=== PATIENT | male | born 1990 | race African-American/Black ===

== ENCOUNTER 2016-08-31 16:40 | Emergency (ER) | payer BC ==
--- NOTE | ~2016-08-31 | US115 ---
[facility] A Service of [facility] & [facility] RADIOLOGY TEXT RESULTS PATIENT: JOHANNA MADDOX LOCATION: CFT[facility] : 88 UNIT #: [id number] AGE: [address]: PRADEEP KWOK APRN SEX: M ORDER DR: [id number] [facility] [address] [place], [place] [address] [id number] E MR#: [id number] Acc #: [id number] NAME: JOHANNA MADDOX : 1990 SEX: M STUDY DATE/TIME: 08/31/2016 20:17 UNIT: CFTX ROOM: STUDY DESCRIPTION: US Scrotum and Contents Attending Physician: Pradeep Kwok Aprn Ordering Physician: Almas Carl A.P.R.N. Primary Care Physician: Davon Dhillon M.D. MEDICAL IMAGING REPORT This report is preliminary unless electronic signature is present EXAM Ultrasound scrotum and contents HISTORY Pain left testis, swollen, pain x1 week. Denies any trauma. No surgery history. No history of hernia or cancer. FINDINGS Real-time ultrasonography of the scrotal contents performed. Quigley-scale, color Doppler, Doppler pulse-wave interrogation utilized. The right testis measures approximately 3.55 cm x 2.57 cm x 2.62 cm. Arterial and venous flow present. Small right hydrocele. Testis normal in contour and echotexture. No testicular mass lesion. The right epididymis is unremarkable. The left testis measures 2.74 cm x 4.21 cm x 2.98 cm. Normal in contour and echotexture. Arterial and venous flow present in the left testis. Small left hydrocele greater than on right. The bilateral epididymides appear mildly prominent but there is no epididymal hypervascularity. Appearance is relatively symmetric and I favor it is the normal appearance for this patient. IMPRESSION 1. The testes appear normal in size, contour and echotexture. No testicular mass lesion. 2. Small bilateral hydroceles left greater than right. 3. The bilateral epididymides appear mildly prominent but there is no focal abnormality. There is no hypervascularity to raise suspicion for epididymitis. I favor that the appearance is the normal state for this patient. [facility]. [facility] A Service of [facility] & [facility] RADIOLOGY TEXT RESULTS PATIENT: JOHANNA MADDOX LOCATION: [facility] : [birth year] UNIT #: [id number] AGE: [address]: PRADEEP KWOK APRN SEX: M ORDER DR: Dictated by... Sachin Cota M.D. THIS IS AN ELECTRONICALLY VERIFIED REPORT Sachin Cota M.D. at 09/01/2016 10:48 PM STEFANIA/drew TD: 09/01/2016 13:21 JOB #: [id number] MEDICAL IMAGING REPORT Page 1 of 1 COPY
--- NOTE | ~2016-08-31 | CT105 ---
[facility] A Service of [facility] RADIOLOGY TEXT RESULTS PATIENT: JOHANNA MADDOX LOCATION: [place] : [birth year] UNIT #: [id number] AGE: [address]: PRADEEP KWOK APRN SEX: M ORDER DR: [id number] [facility] [address] [place] [address] [place], [place] [address] [id number] E MR#: [id number] Acc #: [id number] NAME: JOHANNA MADDOX : 1990 SEX: M STUDY DATE/TIME: 08/31/2016 21:59 UNIT: CFTX ROOM: STUDY DESCRIPTION: CT Pelvis W Cont Attending Physician: Pradeep Kwok Aprn Ordering Physician: Pradeep Kwok Aprn Primary Care Physician: Davon Dhillon M.D. MEDICAL IMAGING REPORT This report is preliminary unless electronic signature is present EXAM CT pelvis with contrast INDICATIONS Left testicle swelling and pain for a week. Scrotal ultrasound was done earlier and was negative. TECHNIQUE Axial 5 mm images were obtained through the pelvis with IV contrast. This CT exam was performed with one or more of the following radiation dose reduction techniques: automatic exposure control, adjustment of mA and/or kV according to patient size, and iterative reconstruction. FINDINGS The visualized portions of the lower abdomen and pelvis appear normal except for the left epididymis which is enlarged, and it shows an increasing increased vascularity and enhancement. The increased vascularity extends up into the inguinal canal. IMPRESSION The left packet epididymis shows enlargement and increased enhancement with enhancement extending up into the inguinal canal, and the findings are consistent with epididymitis. Otherwise study is normal. Dictated by... Jayme Francisco M.D. THIS IS AN ELECTRONICALLY VERIFIED REPORT Jayme Francisco M.D. at 09/01/2016 7:02 PM ALMA/monica [facility] A Service of [facility] RADIOLOGY TEXT RESULTS PATIENT: JOHANNA MADDOX LOCATION: [place] : 88 UNIT #: [id number] AGE: [address]: PRADEEP KWOK APRN SEX: M ORDER DR: TD: 09/01/2016 17:51 JOB #: [id number] MEDICAL IMAGING REPORT Page 1 of 1 COPY
[2016-08-31 18:05] LABS: URINE SOURCE CLEAN CATCH
[2016-08-31 18:11] LABS: URINE APPEARANCE CLEAR; URINE BILIRUBIN NEG (NEG); URINE BLOOD TRACE (NEG); URINE COLOR YELLOW; URINE GLUCOSE NEG (NEG); URINE KETONE NEG (NEG); URINE LEUKOCYTE ESTERASE 3+ (NEG); URINE NITRATE NEG (NEG); URINE PH 6.5 (5-8); URINE PROTEIN TRACE (NEG); URINE SPECIFIC GRAVITY 1.011 (1.003-1.035)
[2016-08-31 18:13] LABS: CULTURE INDICATED? YES; URBCS1 AUWI 0-2 /[HPF] (0-2); URINE BACTERIA AUWI NEG (NEGATIVE); URINE SQUAMOUS EPITHELIAL CELL NONE SEEN /[HPF]; UWBCS1 AUWI 100-200 (0-5)
[2016-08-31 18:45] LABS: BASOPHIL# 0.1 X10e3 (0-0.3); BASOPHIL% 0.4 % (0-2.5); EOSINOPHIL# 0.2 X10e3 (0-0.7); EOSINOPHIL% 1.6 % (0.0-7.0); HEMOGLOBIN 16.4 gm/dL (13.0-16.0); LYMPHOCYTE# 1.6 X10e3 (1.0-3.5); MEAN CELL VOLUME 94.2 FL (83-96); MEAN CORPUSCULAR HEMOGLOBIN 30.8 PG (28-34); MEAN CORPUSCULAR HGB CONC 32.7 g/dL (30-36); MEAN PLATELET VOLUME 7.8 FL (6.5-11.5); MONOCYTE# 1.1 X10e3 (0-1.0); MONOCYTE% 9.4 % (3.0-12.0); NEUTROPHIL# 9.2 X10e3 (1.5-7.1); NEUTROPHIL% 75.6 % (40-75); PLATELET COUNT 237 X10e3 (140-420); RED BLOOD COUNT 5.31 X10e (3.90-5.60); WHITE BLOOD COUNT 12.2 X10e3 (4.0-10.5)
[2016-08-31 19:01] LABS: U HYALINE CASTS AUWI 0-2 /[LPF]
[2016-08-31 19:06] LABS: DIFF IND NO
[2016-08-31 19:09] LABS: BUN/CREATININE RATIO 7.77; CALCIUM SERUM 9.6 mg/dL (8.4-10.2); CREATININE SERUM 0.9 mg/dL (0.6-1.4); GLOM FILT RATE Estimated 135.2 mL/min (>60); POTASSIUM 4.4 mmol/L (3.5-5.1)
[2016-09-04 08:15] LABS: CHLAMYDIA TRACH Not Detected (Not Detected); N GONOR Detected (Not Detected)
== END 2016-08-31 23:14 | disposition home or self-care (01) ==
LOC: CFTX 16:40 → CED 16:40 → CFTX 17:53
PROVIDERS: Nurse Practitioner
DX: N45.1 Epididymitis (principal); N34.2 Other urethritis; J45.909 Unspecified asthma, uncomplicated; F17.200 Nicotine dependence, unspecified, uncomplicated
CPT/HCPCS: 36415; 72193; 76870; 80048; 81003; 85025; 87086; 87491; 87591; 93976; 96361; 96365; 96375; 99284; J0696; J1885; Q9965; Q9967